=== PATIENT | female | born 1940 | race African-American/Black ===

== ENCOUNTER 2019-04-08 06:27 | Day surgery (SDC) | payer MEDICAID ==
[~2019-04-08] VITALS: Ht 167.6 cm; Wt 96.6 kg
[2019-04-08] MEDS ORDERED: LACTATED RINGERS 1,000 ML IV SCH (06:30)
[2019-04-08] MEDS ORDERED: CYCLOPENTOLATE HCL 1% OPHTH DROPS 2ML LEFTEYE ONE (06:30)
[2019-04-08] MEDS ORDERED: PHENYLEPHRINE HCL 10% OPHTH DROPS 5ML LEFTEYE ONE (06:30)
[2019-04-08] MEDS ORDERED: TROPICAMIDE 1% OPHTH DROPS 15ML LEFTEYE ONE (06:30)
[2019-04-08] MEDS ORDERED: BALANCED SALT IRRIG SOLN COMB1 500ML OP ONE ×2 (07:00→10:30)
[2019-04-08] MEDS ORDERED: BALANCED SALT IRRIG SOLN COMB2 500ML OP ONE (07:00)
[2019-04-08 08:26] LABS: BASOPHILS % 0.9 % (0.0-2.0); HEMATOCRIT. 41.4 % (36.0-48.0); HEMOGLOBIN. 12.7 g/dL (12.0-16.0); LYMPHOCYTES % 24.3 % (20.0-50.0); MEAN CORPUSCULAR HEMOGLOBIN 23.5 pg (28.0-32.0); MEAN CORPUSCULAR VOLUME 76.1 fL (81.0-99.0); MEAN PLATELET VOLUME 9.3 fl (7.4-10.4); NEUTROPHILS % 64.8 % (40.0-76.0); PLATELET 222 x1000/uL (130-400); RED BLOOD CELL COUNT 5.43 mill/uL (4.2-5.4)
[2019-04-08 09:13] LABS: PLATELET ESTIMATE NORMAL
[2019-04-08] MEDS ORDERED: HYALURONATE SODIUM 14 MG/ML 0.85ML SYRINGE IO ONE (09:55)
[2019-04-08] MEDS ORDERED: MIDAZOLAM HCL 2 MG/2 ML VIAL ONE (10:24)
[2019-04-08] MEDS ORDERED: FENTANYL CITRATE/PF 50MCG/ML 2ML VIAL ONE (10:24)
[2019-04-08] MEDS ORDERED: SIMV40TA5 PO (10:35)
[2019-04-08] MEDS ORDERED: CARV3.1242 PO (10:35)
[2019-04-08] MEDS ORDERED: CHOL100036 PO (10:35)
[2019-04-08] MEDS ORDERED: LEVO200T8 PO (10:35)
[2019-04-08] MEDS ORDERED: FURO20TA4 PO (10:35)
[2019-04-08] MEDS ORDERED: CYAN-33 PO (10:35)
[2019-04-08] MEDS ORDERED: SITA50TA3 PO (10:35)
[2019-04-08] MEDS ORDERED: LISI-186 PO (10:35)
[2019-04-08] MEDS ORDERED: TRYPAN BLUE 0.5 ML DISP.SYRIN IO ONE (10:41)
[2019-04-08] MEDS ORDERED: ONDANSETRON HCL 4MG/2ML INJ IV PRN (11:00)
[2019-04-08] MEDS ORDERED: MEPERIDINE HCL/PF 25MG/ML CPJ IV PRN (11:00)
[2019-04-08] MEDS ORDERED: LABETALOL 5MG/ML SYR 20 MG/4 ML SYRINGE IV PRN (11:00)
[2019-04-08] MEDS ORDERED: HYDROMORPHONE HCL/PF 2MG/ML CPJ IV PRN (11:00)
== END 2019-04-08 12:05 | disposition home or self-care (01) ==
LOC: OR 06:27
PROVIDERS: ATTEND Ophthalmology
DX: H25.012 Cortical age-related cataract, left eye (principal); E03.9 Hypothyroidism, unspecified; I10 Essential (primary) hypertension; E78.5 Hyperlipidemia, unspecified; E66.9 Obesity, unspecified; M19.90 Unspecified osteoarthritis, unspecified site; F32.9 Major depressive disorder, single episode, unspecified; I20.8 Other forms of angina pectoris; Z79.899 Other long term (current) drug therapy; Z90.49 Acquired absence of other specified parts of digestive tract; Z98.891 History of uterine scar from previous surgery; Z79.82 Long term (current) use of aspirin; Z68.34 Body mass index [BMI] 34.0-34.9, adult; Z79.84 Long term (current) use of oral hypoglycemic drugs; Z82.49 Family history of ischemic heart disease and other diseases of the circulatory system
CPT/HCPCS: 36415; 66984; 80048; 82962; 85025; J2250; J3010; J3490; Q9957; V2632

== ENCOUNTER 2019-05-27 07:19 | Day surgery (SDC) | payer MEDICAID ==
[~2019-05-27] VITALS: Ht 170.2 cm; Wt 92.1 kg
[~2019-05-27 07:19] MED LIST: CARV3.1242 PO; CHOL100036 PO; CYAN-33 PO; FURO20TA4 PO; LEVO200T8 PO; LISI-186 PO; SIMV40TA5 PO; SITA50TA3 PO
[2019-05-27] MEDS ORDERED: PHENYLEPHRINE HCL 10% OPHTH DROPS 5ML RIGHTEYE SCH (07:30)
[2019-05-27] MEDS ORDERED: CYCLOPENTOLATE HCL 1% OPHTH DROPS 2ML RIGHTEYE SCH (07:30)
[2019-05-27] MEDS ORDERED: TROPICAMIDE 1% OPHTH DROPS 15ML RIGHTEYE ONE (07:30)
[2019-05-27] MEDS ORDERED: LIDOCAINE HCL/PF 2% 20 MG/ML 10ML VIAL ONE (08:00)
[2019-05-27] MEDS ORDERED: TETRACAINE 0.5% OPHTH DROPS 4ML ONE (08:00)
[2019-05-27] MEDS ORDERED: CIPROFLOXACIN 0.3% OPHTH SOLN 2.5ML ONE (08:00)
[2019-05-27] MEDS ORDERED: PREDNISOLONE ACETATE 1% OPHTH DROPS 5ML ONE (08:00)
[2019-05-27] MEDS ORDERED: BALANCED SALT IRRIG SOLN 15ML ONE (08:00)
[2019-05-27 09:26] LABS: BASOPHILS % 1.7 % (0.0-2.0); EOSINOPHILS % 2.6 % (0.0-5.0); HEMATOCRIT. 40.5 % (36.0-48.0); HEMOGLOBIN. 13.5 g/dL (12.0-16.0); LYMPHOCYTES % 29.6 % (20.0-50.0); MEAN CORPUSCULAR VOLUME 78.2 fL (81.0-99.0); MONOCYTES % 7.5 % (2.0-8.0); NEUTROPHILS % 58.6 % (40.0-76.0); RED BLOOD CELL COUNT 5.18 mill/uL (4.2-5.4); RED CELL DISTRIBUTION WIDTH 23.7 % (11.6-14.6)
[2019-05-27] MEDS ORDERED: BALANCED SALT IRRIG SOLN COMB1 500ML OP ONE (09:30)
[2019-05-27 09:44] LABS: PLATELET 204 x1000/uL (130-400)
[2019-05-27 09:45] LABS: PLATELET ESTIMATE NORMAL
[2019-05-27] MEDS ORDERED: HYALURONATE SODIUM 14 MG/ML 0.85ML SYRINGE IO ONE (09:57)
[2019-05-27] MEDS ORDERED: DIPHENHYDRAMINE 50MG/ML VIAL ONE (10:13)
[2019-05-27] MEDS ORDERED: FENTANYL CITRATE/PF 50MCG/ML 2ML VIAL ONE (10:13)
[2019-05-27] MEDS ORDERED: MIDAZOLAM HCL 2 MG/2 ML VIAL ONE (10:13)
[2019-05-27] MEDS ORDERED: HYDRALAZINE 20MG/ML VIAL ONE (10:22)
[2019-05-27] MEDS ORDERED: SODIUM CHLORIDE 0.9% 10ML VIAL ONE (10:22)
[2019-05-27] MEDS ORDERED: ERYTHROMYCIN BASE 0.5% OPHTH OINT UD ONE (10:26)
[2019-05-27] MEDS ORDERED: TRYPAN BLUE 0.5 ML DISP.SYRIN IO ONE (10:32)
== END 2019-05-27 12:55 | disposition home or self-care (01) ==
LOC: OR 07:19
PROVIDERS: ATTEND Ophthalmology
DX: E11.36 Type 2 diabetes mellitus with diabetic cataract (principal); H25.21 Age-related cataract, morgagnian type, right eye; I11.0 Hypertensive heart disease with heart failure; I50.32 Chronic diastolic (congestive) heart failure; E66.9 Obesity, unspecified; M19.90 Unspecified osteoarthritis, unspecified site; E03.9 Hypothyroidism, unspecified; E78.5 Hyperlipidemia, unspecified; F32.9 Major depressive disorder, single episode, unspecified; Z79.899 Other long term (current) drug therapy; Z79.84 Long term (current) use of oral hypoglycemic drugs; Z98.890 Other specified postprocedural states; Z68.31 Body mass index [BMI] 31.0-31.9, adult
CPT/HCPCS: 36415; 66982; 80048; 82962; 85025; 93005; J0360; J1200; J2250; J3010; J3490; Q9957; V2632

== ENCOUNTER 2024-10-13 13:47 | Inpatient (IN) | payer MEDICAID, OTHER ==
[~2024-10-13] VITALS: Ht 170.2 cm; Wt 117.2 kg
[~2024-10-13 13:47] MED LIST changes: +SIMV-46 PO; -SIMV40TA5 PO
[2024-10-13 14:00] VITALS: RESP 23
[2024-10-13 14:21] LABS: BASOPHILS % 0.7 % (0.0-2.0); DIFFERENTIAL COMMENT 0; EOSINOPHILS % 2.6 % (0.0-5.0); HEMATOCRIT. 35.2 % (36.0-48.0); HEMOGLOBIN. 10.6 g/dL (12.0-16.0); LYMPHOCYTES % 20.1 % (20.0-50.0); MEAN CORPUSCULAR HEMOGLOBIN 24.2 pg (28.0-32.0); MEAN CORPUSCULAR HGB CONC 30.1 g/dL (31.0-37.0); MEAN CORPUSCULAR VOLUME 80.4 fL (81.0-99.0); MEAN PLATELET VOLUME 8.7 fl (7.4-10.4); MONOCYTES % 6.9 % (2.0-8.0); NEUTROPHILS % 69.7 % (40.0-76.0); PLATELET 338 x1000/uL (130-400); RED BLOOD CELL COUNT 4.38 mill/uL (4.2-5.4); RED CELL DISTRIBUTION WIDTH 18.7 % (11.6-14.6); WHITE BLOOD COUNT 8.2 x1000/uL (4.5-11.0)
[2024-10-13 14:23] LABS: PARTIAL THROMBOPLASTIN TIME 26.5 sec (23.4-31.0); PROTHROMBIN TIME 10.7 sec (9.6-11.0)
[2024-10-13 14:28] LABS: CHLORIDE 105 mEq/L (98-107); SODIUM 142 mEq/L (136-145)
[2024-10-13 14:29] LABS: CALCIUM 9.5 mg/dL (8.7-10.4); CARBON DIOXIDE 27 mEq/L (21-32)
[2024-10-13 14:34] LABS: CREATININE 1.3 mg/dL (0.6-1.0); GLUCOSE 108 mg/dL (70-105); UREA NITROGEN BLOOD 13 mg/dL (9-23)
[2024-10-13 14:36] LABS: ALANINE AMINOTRANSFERASE < 7 IU/L (10-49); ALBUMIN 4.1 g/dL (3.2-4.8); ASPARTATE AMINOTRANSFERASE 9 IU/L (<34); BILIRUBIN TOTAL 0.6 mg/dL (0.1-1.0); PROTEIN TOTAL 7.5 g/dL (6.0-8.3); TROPONIN I HIGH SENSITIVITY 19 ng/L (3.0-34)
[2024-10-13] MEDS: FUROSEMIDE 40MG/4ML VIAL IVP ONE (16:53)
[2024-10-13] MEDS ORDERED: ONDANSETRON HCL 4MG/2ML INJ IV PRN (17:30)
[2024-10-13] MEDS ORDERED: CLONIDINE 0.1MG TABLET PO PRN (17:30)
[2024-10-13] MEDS ORDERED: NALOXONE HCL 0.4MG/ML VIAL IV PRN (17:30)
[2024-10-13] MEDS: PANTOPRAZOLE SODIUM 40 MG/VIAL IV SCH (17:43)
[2024-10-13] MEDS: ENOXAPARIN 40MG/0.4ML SYR SUBCUT SCH (17:49)
[2024-10-13 18:09] LABS: BG BASE EXCESS 2.6 mmol/L (-2.0-3.0); BG CARBOXYHEMOGLOBIN 0.7 % (0.5-1.5); BG DEOXYHEMOGLOBIN 0.3 % (0.0-5.0); BG FRACTION INSPIRED OXYGEN 100; BG METHEMOGLOBIN 0.3 % (0.5-1.5); BG OXYGEN SATURATION 99.7 % (94.0-98.0); BG OXYHEMOGLOBIN 98.7 % (94.0-98.0); BG PCO2 46.7 mmHg (32.0-45.0); BG PH 7.396 (7.350-7.450); BG SAMPLE SITE RIGHT RADIAL; BG TOTAL HEMOGLOBIN 11.1 g/dL (12.0-16.0); BG TOTAL RESPIRATORY RATE 26 b/min; BG VENT MODE MASK - BIPAP
[2024-10-13] MEDS: CARVEDILOL 3.125 MG TABLET PO SCH (20:57)
[2024-10-13 22:00] VITALS: RESP 28
[2024-10-13] MEDS: ATORVASTATIN CALCIUM 40MG TABLET PO SCH (22:54)
[2024-10-14] VITALS (10 sets, daily range): BP systolic 105–129; BP diastolic 67–94; PULSE 75–80; RESP 15–30; TEMP 36.3–36.7; O2SAT 97–100
[2024-10-14] MEDS ORDERED: DEXTROSE 50% WATER 50ML SYRINGE IV PRN (08:15)
[2024-10-14] MEDS: FUROSEMIDE 40MG/4ML VIAL IVP SCH (08:32)
[2024-10-14] MEDS: ASPIRIN 81MG TABLET PO SCH (08:33)
[2024-10-14] MEDS: LISINOPRIL 5MG TABLET PO SCH (08:33)
[2024-10-14] MEDS: LEVOTHYROXINE SODIUM 200MCG TABLET PO SCH (09:59)
[2024-10-14 11:23] LABS: BASOPHILS % 0.5 % (0.0-2.0); EOSINOPHILS % 3.8 % (0.0-5.0); HEMATOCRIT. 32.7 % (36.0-48.0); HEMOGLOBIN. 10.2 g/dL (12.0-16.0); LYMPHOCYTES % 15.3 % (20.0-50.0); MEAN CORPUSCULAR HGB CONC 31.1 g/dL (31.0-37.0); MEAN CORPUSCULAR VOLUME 80.3 fL (81.0-99.0); MEAN PLATELET VOLUME 8.5 fl (7.4-10.4); MONOCYTES % 7.4 % (2.0-8.0); PLATELET 311 x1000/uL (130-400); RED BLOOD CELL COUNT 4.07 mill/uL (4.2-5.4); RED CELL DISTRIBUTION WIDTH 18.5 % (11.6-14.6); WHITE BLOOD COUNT 7.8 x1000/uL (4.5-11.0)
[2024-10-14 11:45] LABS: POTASSIUM 3.9 mEq/L (3.5-5.1)
[2024-10-14 11:46] LABS: CALCIUM 9.4 mg/dL (8.7-10.4)
[2024-10-14] MEDS: INSULIN LISPRO 100 UNITS/ML SUBCUT SCH (11:48)
[2024-10-14] MEDS: BLOOD SUGAR DIAGNOSTIC STRIP TEST SCH (11:48)
[2024-10-14 11:51] LABS: CREATININE 1.3 mg/dL (0.6-1.0)
[2024-10-15] VITALS (10 sets, daily range): BP systolic 105–137; BP diastolic 58–81; PULSE 68–78; RESP 15–29; TEMP 35.7–36.7; O2SAT 88–100
[2024-10-15 06:56] LABS: BASOPHILS % 0.4 % (0.0-2.0); DIFFERENTIAL COMMENT 0; HEMATOCRIT. 31.9 % (36.0-48.0); HEMOGLOBIN. 9.9 g/dL (12.0-16.0); LYMPHOCYTES % 18.7 % (20.0-50.0); MEAN CORPUSCULAR HEMOGLOBIN 24.7 pg (28.0-32.0); MEAN CORPUSCULAR HGB CONC 30.9 g/dL (31.0-37.0); MEAN CORPUSCULAR VOLUME 79.8 fL (81.0-99.0); MEAN PLATELET VOLUME 8.6 fl (7.4-10.4); MONOCYTES % 6.1 % (2.0-8.0); NEUTROPHILS % 70.8 % (40.0-76.0); PLATELET 314 x1000/uL (130-400); RED CELL DISTRIBUTION WIDTH 18.3 % (11.6-14.6); WHITE BLOOD COUNT 7.7 x1000/uL (4.5-11.0)
[2024-10-15 07:15] LABS: POTASSIUM 4.2 mEq/L (3.5-5.1)
[2024-10-15 07:17] LABS: CALCIUM 9.2 mg/dL (8.7-10.4)
[2024-10-15 07:18] LABS: CREATININE 1.4 mg/dL (0.6-1.0)
[2024-10-15] MEDS: HYDROCODONE/ACETAMINOPHEN 5/325MG TABLET PO PRN (09:08)
[2024-10-15 16:40] LABS: CLARITY URINE CLEAR (CLEAR); COLOR URINE DARK YELLOW (YELLOW); GLUCOSE URINE 2+ (NEGATIVE); KETONES URINE NEGATIVE (NEGATIVE); LEUKOCYTE ESTERASE URINE NEGATIVE (NEGATIVE); NITRITE URINE NEGATIVE (NEGATIVE); OCCULT BLOOD URINE NEGATIVE (NEGATIVE); PH URINE 5.5 (4.5-8.0); PROTEIN URINE TRACE (NEGATIVE); SPECIFIC GRAVITY URINE 1.021 (1.005-1.030)
[2024-10-15 16:50] LABS: *AMPHETAMINES SCREEN URINE NEGATIVE (NEGATIVE); *BARBITURATES SCREEN URINE NEGATIVE (NEGATIVE); *BENZODIAZEPINES SCREEN URINE NEGATIVE (NEGATIVE); *COCAINE SCREEN URINE NEGATIVE (NEGATIVE); CANNABINOID URINE SCREEN NEGATIVE (NEGATIVE); ECSTASY MDMA SCREEN URINE NEGATIVE (NEGATIVE); METHADONE URINE SCREEN NEGATIVE (NEGATIVE); OPIATES URINE SCREEN NEGATIVE (NEGATIVE); PHENCYCLIDINE URINE SCREEN NEGATIVE (NEGATIVE)
[2024-10-15 18:20] LABS: BACTERIA URINE 2+; RBC URINE 0-2 /hpf (0-2); SQUAMOUS EPITHELIAL CELL URINE 1+ /lpf (RARE/1+); WBC URINE 0-2 /hpf (0-2)
[2024-10-16] VITALS (7 sets, daily range): BP systolic 96–123; BP diastolic 42–72; PULSE 73–76; RESP 16–20; TEMP 36.4–36.7; O2SAT 93–99
[2024-10-16 06:41] LABS: BASOPHILS % 0.5 % (0.0-2.0); DIFFERENTIAL COMMENT 0; EOSINOPHILS % 4.2 % (0.0-5.0); HEMATOCRIT. 32.2 % (36.0-48.0); HEMOGLOBIN. 9.9 g/dL (12.0-16.0); LYMPHOCYTES % 16.6 % (20.0-50.0); MEAN CORPUSCULAR HEMOGLOBIN 24.5 pg (28.0-32.0); MEAN CORPUSCULAR HGB CONC 30.8 g/dL (31.0-37.0); MEAN CORPUSCULAR VOLUME 79.7 fL (81.0-99.0); MEAN PLATELET VOLUME 8.5 fl (7.4-10.4); MONOCYTES % 8.5 % (2.0-8.0); NEUTROPHILS % 70.2 % (40.0-76.0); PLATELET 310 x1000/uL (130-400); RED BLOOD CELL COUNT 4.04 mill/uL (4.2-5.4); RED CELL DISTRIBUTION WIDTH 18.9 % (11.6-14.6); WHITE BLOOD COUNT 8.3 x1000/uL (4.5-11.0)
[2024-10-16 06:59] LABS: POTASSIUM 4.4 mEq/L (3.5-5.1)
[2024-10-16 07:00] LABS: CALCIUM 9.1 mg/dL (8.7-10.4)
[2024-10-16] MEDS: LEVOTHYROXINE SODIUM 100MCG TABLET PO SCH (10:22)
[2024-10-16] MEDS: ACETAMINOPHEN 325MG TABLET PO PRN (10:24)
[2024-10-16 10:54] LABS: BG BASE EXCESS 2.6 mmol/L (-2.0-3.0); BG CARBOXYHEMOGLOBIN 1.1 % (0.5-1.5); BG DEOXYHEMOGLOBIN 12.1 % (0.0-5.0); BG FRACTION INSPIRED OXYGEN 21; BG METHEMOGLOBIN 0.3 % (0.5-1.5); BG OXYGEN SATURATION 87.7 % (94.0-98.0); BG OXYHEMOGLOBIN 86.5 % (94.0-98.0); BG PCO2 46.8 mmHg (32.0-45.0); BG PH 7.395 (7.350-7.450); BG PO2 53.9 mmHg (83.0-108.0); BG SAMPLE SITE LEFT RADIAL; BG TOTAL HEMOGLOBIN 11.3 g/dL (12.0-16.0); BG VENT MODE ROOM AIR
[2024-10-16] MEDS: IPRATROPIUM/ALBUTEROL 0.5-3(2.5)MG/3ML NEB NEB PRN (14:51)
[2024-10-16] MEDS ORDERED: FURO-151 MT (15:37)
[2024-10-16] MEDS ORDERED: GUAIFENESIN 600MG ER TABLET PO SCH (21:00)
== END 2024-10-16 18:45 | disposition home health service (06) | DRG 194 ==
LOC: ER 13:47 → MICUSO 16:32 → EDBEDREQTM 16:40 → EDBEDREQ 16:40 → EDBEDREQSVC 16:40 → 5EST 10-14 06:59 → 7WST 10-15 14:55
PROVIDERS: ADMIT Internal Medicine; ATTEND Internal Medicine
PROC: 5A09357 Assistance with Respiratory Ventilation, Less than 24 Consecutive Hours, Continuous Positive Airway Pressure (ICD-10-PCS; principal; 2024-10-13)
PROC: 5A09357 Assistance with Respiratory Ventilation, Less than 24 Consecutive Hours, Continuous Positive Airway Pressure (ICD-10-PCS; 2024-10-14)
DX: I11.0 Hypertensive heart disease with heart failure (principal); J96.01 Acute respiratory failure with hypoxia; F03.90 Unspecified dementia, unspecified severity, without behavioral disturbance, psychotic disturbance, mood disturbance, and anxiety; E03.9 Hypothyroidism, unspecified; D64.9 Anemia, unspecified; E11.9 Type 2 diabetes mellitus without complications; I50.9 Heart failure, unspecified
CPT/HCPCS: 36415; 36600; 71045; 80048; 80053; 80305; 81003; 82375; 82805; 82962; 83036; 83880; 84484; 85025; 93005; 93306; 93970; 94070; 94640; 94660; 99291; J1650; J1815; J1940; J2470